=== PATIENT | female | born 1985 | race Caucasian/White ===

== ENCOUNTER → 2024-01-19 14:31 | Outpatient (REF) | payer BC, SELFPAY | LOC: HWRAD 14:31 | PROVIDERS: ATTENDING PHYSICIAN Physician Assistant | DX: R05.2 Subacute cough (principal) | CPT/HCPCS: 71046 ==

== ENCOUNTER → 2024-11-14 14:08 | Outpatient (REF) | payer BC, SELFPAY | LOC: HWRAD 14:08 | PROVIDERS: ATTENDING PHYSICIAN Physician Assistant | DX: K29.00 Acute gastritis without bleeding (principal); R10.31 Right lower quadrant pain | CPT/HCPCS: 76700 ==